=== PATIENT | male | born 1965 | race Caucasian/White ===

== ENCOUNTER 2017-01-15 09:25 | Emergency (ER) | payer OTHER ==
[~2017-01-15] VITALS: Ht 185.4 cm; Wt 108.0 kg
[~2017-01-15 09:25] MED LIST: PRIN20TA2 PO
[2017-01-15 09:26] VITALS: BP 125/84; PULSE 77; RESP 16; TEMP 98.1; O2SAT 98
--- NOTE | 2017-01-15 10:13 | PD ---
HPI Chief Complaint: Injury Time Seen by Provider: 10:12 Travel History International Travel<30 days: No Contact w/Intl Traveler<30days: No Traveled to known affect area: No History of Present Illness HPI 51-year-old male came to the emergency room with history of nose injury at work. 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 He also got very dizzy when this happened. When I saw him he had both his nose stuff with gauze which was done at the emergency room. Patient's bleeding was under control. His blood pressure was good. He says normally does not get nosebleeds and he is not on any blood thinners. He was a little bit nauseous but has not vomited. He was awake and answering questions appropriately. [facility] Past Medical History Narrative Medical List of his past medical, surgical, social and family history was reviewed from the nursing note. Cardiovascular Problems: Yes (HTN) ?: Not Social History Tobacco Use: Yes Allergies-Medications (Allergen,Severity, Reaction): Coded Allergies: No Known Allergies (Unverified , 11/11/15) Comments No known drug allergies. Reported Meds & Prescriptions Reported Meds & Active Scripts Active Reported Prinivil (Lisinopril) 20 Mg Tab 20 Mg PO DAILY Narrative Medication List of his home medications reviewed from the nursing note. Review of Systems Except as stated in HPI: all other systems reviewed are Neg Physical Exam Narrative GENERAL: Awake, alert, moderate distress SKIN: Focused skin assessment warm/dry. HEAD: Atraumatic. Normocephalic. EYES: Pupils equal and round. No scleral icterus. No injection or drainage. ENT: No nasal bleeding or discharge. Mucous membranes pink and moist. Nose is slightly swollen. No active bleeding. Some dried blood in both nostrils. Tender to touch. No postnasal bleeding. NECK: Trachea midline. No JVD. CARDIOVASCULAR: Regular rate and rhythm. No murmur appreciated. RESPIRATORY: No accessory muscle use. Clear to auscultation. Breath sounds equal bilaterally. GASTROINTESTINAL: Abdomen soft, non-tender, nondistended. Hepatic and splenic margins not palpable. MUSCULOSKELETAL: No obvious deformities. No clubbing. No cyanosis. No edema. NEUROLOGICAL: Awake and alert. No obvious cranial nerve deficits. Motor grossly within normal limits. Normal speech. PSYCHIATRIC: Appropriate mood and affect; insight and judgment normal. Data Data Last Documented VS Vital Signs Date Time Temp Pulse Resp B/P Pulse Ox O2 Delivery O2 Flow Rate FiO2 01/15/17 12:32 74 16 121/73 99 01/15/17 11:16 Room Air 01/15/17 09:[address] Brain W/O Iv Contrast(Rout) (01/15/17 ) Ct Facial Bones W/O Iv Cont (01/15/17 ) Acetaminophen (Tylenol) (01/15/17 10:30) Ondansetron Odt (Zofran Odt) (01/15/17 10:30) MDM Medical Decision Making Medical Screen Exam Complete: Yes Emergency Medical Condition: Yes Medical Record Reviewed: Yes Differential Diagnosis Nasal fracture, nasal contusion, epistaxis control, concussion Narrative Course 12:[address] scan of the head and face was ordered. This a work-related injury. Awaiting for the CAT scan report to come back. If CT is within normal limit patient will be discharged home. He has been asked to apply ice pack over the area. Procedures EKG Prior to Arrival: No Diagnosis Primary Impression: Facial injury Qualified Code: S09.93XA - Facial injury, initial encounter Additional Impressions: Nasal contusion Nosebleed Referrals: Primary Care Physician Additional Instructions: Please apply ice pack on the nasal bridge to keep the swelling down. 20 minutes on 20 minutes off. Return to the ER if symptoms worsen. Otherwise follow-up with your primary care. Take Tylenol/Motrin/Advil/ibuprofen for the pain as needed. Med/Other Pt SpecificInfo: No Change to Meds Disposition: 01 DISCHARGE HOME Condition: Stable Minseh Bennett MD Jan 15, 2017 10:13
[2017-01-15] MEDS ORDERED: ONDANSETRON ODT 4 MG TAB PO ONE (10:30)
[2017-01-15] MEDS ORDERED: ACETAMINOPHEN 325 MG TAB PO ONE (10:30)
--- NOTE | 2017-01-15 12:03 | RADRPT ---
EXAM DATE/TIME: 01/15/2017 11:44 [facility] COMPARISON: No previous studies available for comparison. INDICATIONS : Hit head today, blurred vision, headache, nose bleed RADIATION DOSE: 36.48 CTDIvol (mGy) MEDICAL HISTORY : Cardiovascular disease. Hypertension. SURGICAL HISTORY : None. ENCOUNTER: Initial ACUITY: 1 day PAIN SCALE: 4/10 LOCATION: cranial TECHNIQUE: Multiple contiguous axial images were obtained of the head. Using automated exposure control and adj ustment of the mA and/or kV according to patient size, radiation dose was kept as low as reasonably a chievable to obtain optimal diagnostic quality images. DICOM format image data is available electro nically for review and comparison. FINDINGS: CEREBRUM: The ventricles are normal for age. No evidence of midline shift, mass lesion, hemorrhage or acute in farction. No extra-axial fluid collections are seen. POSTERIOR FOSSA: The cerebellum and brainstem are intact. The 4th ventricle is midline. The cerebellopontine angle i s unremarkable. EXTRACRANIAL: The visualized portion of the orbits is intact. SKULL: The calvaria is intact. No evidence of skull fracture. CONCLUSION: Normal examination. Amos Cannon MD on January 15, 2017 at 11:59 Board Certified Radiologist. This report was verified electronically.
--- NOTE | 2017-01-15 12:04 | RADRPT ---
EXAM DATE/TIME: 01/15/2017 11:44 [facility] COMPARISON: No previous studies available for comparison. INDICATIONS : Hit head today, bleeding from nose, headache and blurred vision RADIATION DOSE: 58.32 CTDIvol (mGy) MEDICAL HISTORY : Cardiovascular disease. Hypertension. SURGICAL HISTORY : None. ENCOUNTER: Initial ACUITY: 1 day PAIN SCORE: 4/10 LOCATION: facial TECHNIQUE: Volumetric scanning of the facial bones was performed. Using automated exposure control and adjustme nt of the mA and/or kV according to patient size, radiation dose was kept as low as reasonably achiev able to obtain optimal diagnostic quality images. DICOM format image data is available electronicTEXbase y for review and comparison. FINDINGS: ORBITS: The orbital and infraorbital osseous structures are intact. The retroconal structures have a normal configuration. No radiopaque foreign bodies are seen. NASAL BONE: The nasal bone and maxillary spine are intact ZYGOMATIC ARCHES: Symmetric without evidence of fracture. SINUSES: The maxillary, ethmoid and frontal sinuses are intact. No air-fluid levels seen. NASAL CAVITY: The nasal septum is intact and midline. The lacrimal ducts are intact. SOFT TISSUES: No radiopaque foreign bodies seen. No soft-tissue swelling is seen. INTRACRANIAL: No intracranial air seen. CRIBIFORM PLATE: Grossly intact. CONCLUSION: Normal examination. Amos Cannon MD on January 15, 2017 at 12:01 Board Certified Radiologist. This report was verified electronically.
[2017-01-15 12:32] VITALS: BP 121/73
== END 2017-01-15 12:32 ==
LOC: NEPD 09:25
DX: S09.93XA Unspecified injury of face, initial encounter (principal); S00.33XA Contusion of nose, initial encounter; R04.0 Epistaxis; Y35.811A Legal intervention involving manhandling, law enforcement official injured, initial encounter; Y93.89 Activity, other specified; Y92.149 Unspecified place in prison as the place of occurrence of the external cause; Y99.0 Civilian activity done for income or pay
CPT/HCPCS: 70450; 70486